=== PATIENT | female | born 1990 | race Caucasian/White ===

== ENCOUNTER 2018-10-21 11:46 | Emergency (ER) | payer OTHER ==
[~2018-10-21] VITALS: Ht 165.1 cm; Wt 74.6 kg
[2018-10-21] MEDS ORDERED: DICY10CA13 PO (12:46)
[2018-10-21 12:56] LABS: BASO % 0.5 % (0.0-1.0); EOS # 0.2 10^3/uL (0.0-0.5); EOS % 3.8 % (0.0-3.0); HEMATOCRIT 41.4 % (36.0-47.0); HEMOGLOBIN 13.9 g/dl (12.0-15.5); LYMPH # 1.8 10^3/uL (1.5-5.0); LYMPH % 30.7 % (24.0-44.0); MEAN CORPUSCULAR HEMOGLOBIN 32.3 pg (27.0-33.0); MEAN CORPUSCULAR HGB CONC 33.6 g/dl (32.0-36.5); MEAN CORPUSCULAR VOLUME 96.3 fl (80.0-96.0); MONO # 0.5 10^3/uL (0.0-0.8); MONO % 8.2 % (0.0-5.0); NEUTROPHILS # 3.4 10^3/uL (1.5-8.5); NEUTROPHILS % 56.6 % (36.0-66.0); PLATELET COUNT, AUTOMATED 246 10^3/uL (150-450)
[2018-10-21 13:20] LABS: ALBUMIN 4.2 GM/DL (3.2-5.2); ALT/SGPT 32 U/L (12-78); BILIRUBIN,DIRECT 0.2 MG/DL (0.0-0.2); BILIRUBIN,TOTAL 0.5 MG/DL (0.2-1.0); BLOOD UREA NITROGEN 12 MG/DL (7-18); CALCIUM LEVEL 9.6 MG/DL (8.5-10.1); CARBON DIOXIDE LEVEL 25 MEQ/L (21-32); CHLORIDE LEVEL 104 MEQ/L (98-107); CREATININE FOR GFR 0.89 MG/DL (0.55-1.30); GLOMERULAR FILTRATION RATE > 60.0 (>60); GLUCOSE, FASTING 89 MG/DL (70-100); LIPASE 121 U/L (73-393); POTASSIUM SERUM 3.9 MEQ/L (3.5-5.1); SODIUM LEVEL 138 MEQ/L (136-145); TOTAL PROTEIN 7.7 GM/DL (6.4-8.2)
[2018-10-21] MEDS ORDERED: KETOROLAC 30 MG/ML VIAL (J1885) IV ONE (14:30)
[2018-10-21] MEDS ORDERED: ISOVUE-370 76% 100ML VIAL (Q9967) As Ordered ONE (14:41)
[2018-10-21 15:19] VITALS: BP 125/78
[2018-10-21] MEDS ORDERED: DICY10SO PO (15:49)
--- NOTE | 2018-10-22 07:39 | REP ---
CT abdomen and pelvis with IV but without oral contrast: History: Periumbilical pain. CT contrast dose: 100 ml of intravenous Isovue 370. No comparison study. 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 The lung bases are clear on axial CT images. There is a 1 cm cyst inferiorly in the right lobe of the liver. No focal hepatic lesion is seen. Liver is not felt to be enlarged. Spleen is normal in size homogeneous in texture. There is an accessory splenule. No adrenal lesion is seen. No abnormalities noted in the gallbladder or within the pancreas. Kidneys enhance symmetrically are morphologically intact. No retroperitoneal mass or adenopathy is observed. Urinary bladder is unremarkable. Uterus is tipped to the right but intact. No ovarian mass or significant cyst is seen. No evidence of free intraperitoneal air or ascites. The cecum is deep within the pelvis. A normal right pelvic appendix is seen. There is no CT evidence of diverticulitis or appendicitis. No abdominal wall defect is seen. No bony destructive lesion is appreciated. Impression: No acute abdominal or pelvic abnormality. Small hepatic cysts. Normal appendix in the right pelvis. Electronically Signed by Anthony Peterson MD 10/22/2018 09:07 A
== END 2018-10-21 15:57 | disposition home or self-care (01) ==
LOC: M ED 11:46
DX: K58.9 Irritable bowel syndrome, unspecified (principal); F17.210 Nicotine dependence, cigarettes, uncomplicated
CPT/HCPCS: 36415; 74177; 80048; 80076; 81001; 83690; 84702; 85025; 96374; 99284; J1885; Q9967